=== PATIENT | female | born 1995 | race African-American/Black ===

== ENCOUNTER 2018-11-13 14:16 | Emergency (ER) | payer BC, OTHER ==
[2018-11-13 15:15] LABS: Urine Blood 1+ (NEG); Urine Glucose NEGATIVE (NEG); Urine Protein 2+ (NEG); Urine pH 8.5 (5.0-7.0)
[2018-11-13] MEDS ORDERED: IBUPROFEN 200 MG TAB PO ONE (16:15)
[2018-11-13] MEDS ORDERED: NA CHLORIDE 0.9% 1,000 ML ONE (16:29)
[2018-11-13 16:58] LABS: ALT/SGPT 25 U/L (12-78); AST/SGOT 16 U/L (15-37); Albumin 3.9 g/dL (3.4-5.0); Alkaline Phosphatase 65 U/L (45-117); BUN Blood Urea Nitrogen 7 mg/dL (7-18); Bicarbonate 26 mmol/L (21-32); Bilirubin Direct < 0.1 mg/dL (0-0.2); Bilirubin Total 0.3 mg/dL (0.2-1.0); Glucose Level 103 mg/dL (74-106); Lipase 79 U/L (73-393); Potassium 3.7 mmol/L (3.5-5.1); Sodium Level 137 mmol/L (136-145)
[2018-11-13 17:08] LABS: Absolute Lymphocytes (CBC) 0.8 K/uL (0.7-4.9); Absolute Monocytes 0.8 K/uL (0.1-1.3); Absolute Neutrophil 6.8 K/uL (1.8-8.0); Basophils % 0.6 % (0-1.3); Hematocrit 42.1 % (36.0-45.0); Lymphocytes % 9.2 % (15.3-44.8); MPV 8.7 fL (7.6-11.3); Monocytes % 9.4 % (3.3-12.3); RBC Red Blood Cell Count 5.05 M/uL (3.86-4.86)
--- NOTE | 2018-11-13 17:42 | RAD REPORT ---
EXAM DESCRIPTION: CT - Abdomen Pelvis W Contrast - 11/13/2018 5:25 pm CLINICAL HISTORY: Abdominal pain/flank pain. COMPARISON: 2013 TECHNIQUE: Computed axial tomography of the abdomen pelvis was obtained. 100 cc Isovue-300 was admin istered intravenously. Oral contrast was not requested which limits evaluation of bowel. All CT scans are performed using dose optimization technique as appropriate and may include automated exposure control or mA/KV adjustment according to patient size. FINDINGS: The liver, spleen, pancreas, adrenal and kidneys appear unremarkable. There is no evidence of diverticulitis. The appendix is normal 2 centimeter right ovarian cyst without significant free fluid IMPRESSION: 2 centimeter right ovarian cyst without significant free fluid
[2018-11-13] MEDS ORDERED: ACETAMINOPHEN 325 MG TABLET ONE (18:00)
--- NOTE | 2018-11-13 18:03 | ER ---
Nurse's Notes [facility] Name: Darren Blakely Age: 23 yrs Sex: Female : 1995 Arrival Date: 11/13/2018 Time: 14:18 Bed 27 Private MD: Diagnosis: Diarrhea, unspecified;Acute pharyngitis;Urinary tract infection, site not specified Presentation: 11/13 14:35 Presenting complaint: Patient states: body aches, sore throat, urinary frequency/ ss urgency, diarrhea, fever and headache that began 2-3 days ago. Transition of care: patient was not received from another setting of care. Risk Assessment: Do you want to hurt yourself or someone else? Patient reports no desire to harm self or others. Initial Sepsis Screen: Does the patient meet any 2 criteria? HR > 90 bpm. Does the patient have a suspected source of infection? No. Patient's initial sepsis screen is negative. Care prior to arrival: None. 14:35 Method Of Arrival: Ambulatory ss 14:35 Acuity: PATT 4 ss 14:40 Onset of symptoms was November 13, 2018. 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 - Social history:: Smoking status: Patient uses tobacco products, denies chronic smoking, but will smoke occasionally. - Ebola Screening: : Patient denies exposure to infectious person Patient denies travel to an Ebola-affected area in the 21 days before illness onset. Screenin:40 Abuse screen: Denies threats or abuse. Denies injuries from another. Nutritional ca1 screening: No deficits noted. Tuberculosis screening: No symptoms or risk factors identified. Fall Risk None identified. Assessment: 14:40 General: Appears in no apparent distress. comfortable, Behavior is calm, cooperative, ca1 appropriate for age. Pain: Complains of pain in low back area Pain currently is 6 out of 10 on a pain scale. Quality of pain is described as aching. Neuro: Level of Consciousness is awake, alert, obeys commands, Oriented to person, place, time, situation. Cardiovascular: Heart tones S1 S2 present Capillary refill < 3 seconds Patient's skin is warm and dry. Respiratory: Airway is patent Trachea midline Respiratory effort is even, unlabored, Respiratory pattern is regular, symmetrical, Breath sounds are clear bilaterally. GI: Abdomen is round non-distended, Bowel sounds present X 4 quads. Abd is soft Abdomen is tender to palpation. : Reports burning with urination, urgency, urinary frequency. EENT: Throat is reddened has enlarged tonsils bilaterally. Derm: Skin is intact, is healthy with good turgor, Skin is pink, warm \T\ dry. Musculoskeletal: Circulation, motion, and sensation intact. 15:36 Reassessment: Patient appears in no apparent distress at this time. Patient and/or ca1 family updated on plan of care and expected duration. Pain level reassessed. Patient is alert, oriented x 3, equal unlabored respirations, skin warm/dry/pink. 16:40 Reassessment: Patient appears in no apparent distress at this time. Patient and/or ca1 family updated on plan of care and expected duration. Pain level reassessed. Patient is alert, oriented x 3, equal unlabored respirations, skin warm/dry/pink. 17:40 Reassessment: Patient appears in no apparent distress at this time. Patient and/or ca1 family updated on plan of care and expected duration. Pain level reassessed. Patient is alert, oriented x 3, equal unlabored respirations, skin warm/dry/pink. Vital Signs: 14:37 BP 137 / 91; Pulse 108; Resp 19; Pulse Ox 97% on R/A; ca1 14:37 Temp 99.8(TE); Weight 97.52 kg; Height 5 ft. 6 in. (167.64 cm); Pain 7/10; ss 15:36 BP 135 / 85; Pulse 112; Resp 19; Pulse Ox 100% on R/A; ca1 15:58 Temp 101.3(O); ca1 16:30 BP 125 / 67; Pulse 110; Resp 19; Pulse Ox 100% on R/A; ca1 17:36 BP 111 / 89; Pulse 109; Resp 19; Pulse Ox 100% on R/A; ca1 17:58 Temp 99.3(O); ca1 14:37 Body Mass Index 34.70 (97.52 kg, 167.64 cm) ED Course: 14:18 Patient arrived in ED. rg4 14:32 Mickail, Nestor, PA is PHCP. jmm 14:32 Jaspal Etienne MD is Attending Physician. jmm 14:36 Triage completed. ss 14:37 Loren Fuentes, BERNICE is Primary Nurse. ca1 14:37 Arm band placed on right wrist. ss 14:40 Patient has correct armband on for positive identification. Placed in gown. Bed in low ca1 position. Call light in reach. Side rails up X 1. Pulse ox on. NIBP on. Warm blanket given. 16:07 Radiology exam delayed due to lab results not completed at this time. (BUN/Creatinine). jg6 16:30 Inserted saline lock: 20 gauge in right antecubital area, using aseptic technique. ca1 Blood collected. 16:44 Radiology exam delayed due to lab results not completed at this time. (BUN/Creatinine). jg6 17:14 Patient moved to RI via wheelchair. jg6 17:24 CT completed. Patient tolerated procedure well. Patient moved back from RI. nj 17:26 CT Abd/Pelvis - W/Contrast In Process Unspecified. EDMS 18:09 No provider procedures requiring assistance completed. ca1 18:15 IV discontinued, intact, bleeding controlled, No redness/swelling at site. Pressure ca1 dressing applied. Administered Medications: 16:05 Drug: Motrin 600 mg Route: PO; ca1 17:55 Follow up: Response: No adverse reaction; Temperature is unchanged ca1 17:56 Follow up: Response: Temperature is decreased ca1 16:32 Drug: NS 0.9% 1000 ml Route: IV; Rate: 1 bolus; Site: right antecubital; ca1 18:16 Follow up: Response: No adverse reaction; IV Status: Completed infusion ca1 17:52 Drug: Tylenol 650 mg Route: PO; ls4 18:05 Follow up: Response: No adverse reaction; Pain is decreased ca1 18:05 Drug: Rocephin - (cefTRIAXone) 1 grams Route: IVPB; Infused Over: 30 mins; Site: right ca1 antecubital; 18:15 Follow up: Response: No adverse reaction; IVP per pharmacy protocol. ca1 18:45 Follow up: Response: No adverse reaction; IV Status: IVP per pharmacy protocol ca1 Intake: Outcome: 18:02 Discharge ordered by . m 18:14 Discharged to home ambulatory. ca1 18:14 Condition: stable 18:14 Discharge instructions given to patient, Instructed on discharge instructions, follow up and referral plans. medication usage, Demonstrated understanding of instructions, follow-up care, medications, Prescriptions given X 2. 18:18 Patient left the ED. ca1 Signatures: Dispatcher [employer] EDMS Nestor Adams PA PA jmm Smirch, Shelby, BERNICE RN Chastity Castillo rg4 Roni Bailey Jessica j6 Tayla Shirley RN RN ls4 Loren Fuentes RN RN ca1 Corrections: (The following items were deleted from the chart) 15:03 14:40 EENT: No signs and/or symptoms were reported regarding the EENT system. ca1 ca1 18:01 15:58 Temp 101.3F; ca1 ca1
--- NOTE | 2018-11-13 18:03 | EDPHYS ---
Physician Documentation [facility] Name: Darren Blakely Age: 23 yrs Sex: Female : 1995 Arrival Date: 11/13/2018 Time: 14:18 Bed 27 Private MD: ED Physician Jaspal Etienne HPI: 11/13 15:05 This 23 yrs old Black Female presents to ER via Ambulatory with complaints of Flu jmm Symptoms. 15:05 fever, flank pain. Onset: The symptoms/episode began/occurred gradually, last night. jmm The patient has not experienced similar symptoms in the past. This is a 23 year old female with no chronic medical conditions that presents to the ED with complaints of fever, sore throat, diarrhea, flank pain, and dysuria. Patient denies cough. . 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 - Social history:: Smoking status: Patient uses tobacco products, denies chronic smoking, but will smoke occasionally. - Ebola Screening: : Patient denies exposure to infectious person Patient denies travel to an Ebola-affected area in the 21 days before illness onset. ROS: 15:05 Constitutional: Positive for fever. jmm 15:05 ENT: Positive for sore throat. 15:05 Abdomen/GI: Positive for diarrhea. 15:05 Back: Positive for flank pain, Negative for 15:05 : Positive for urinary symptoms. 15:05 All other systems are negative. Exam: 15:05 Constitutional: This is a well developed, well nourished patient who is awake, alert, jmm and in no acute distress. Head/Face: atraumatic. Eyes: EOMI, no conjunctival erythema appreciated 15:05 Neck: Trachea midline, Supple Chest/axilla: Normal chest wall appearance and motion. 15:05 ENT: Posterior pharynx: erythema, that is moderate. 15:05 Cardiovascular: Rate: tachycardic, Rhythm: regular. 15:05 Respiratory: the patient does not display signs of respiratory distress, Respirations: normal, Breath sounds: are clear throughout. 15:05 Abdomen/GI: Inspection: abdomen appears normal, Bowel sounds: normal. 15:05 Back: CVA tenderness, that is mild, is noted bilaterally. 15:05 Musculoskeletal/extremity: ROM: intact in all extremities. 15:05 Skin: Appearance: Color: normal in color. 15:05 Neuro: Orientation: is normal, Mentation: is normal, Memory: is normal, Gait: is steady. 15:05 Psych: Behavior/mood is pleasant, cooperative. Vital Signs: 14:37 BP 137 / 91; Pulse 108; Resp 19; Pulse Ox 97% on R/A; ca1 14:37 Temp 99.8(TE); Weight 97.52 kg; Height 5 ft. 6 in. (167.64 cm); Pain 7/10; ss 15:36 BP 135 / 85; Pulse 112; Resp 19; Pulse Ox 100% on R/A; ca1 15:58 Temp 101.3(O); ca1 16:30 BP 125 / 67; Pulse 110; Resp 19; Pulse Ox 100% on R/A; ca1 17:36 BP 111 / 89; Pulse 109; Resp 19; Pulse Ox 100% on R/A; ca1 17:58 Temp 99.3(O); ca1 14:37 Body Mass Index 34.70 (97.52 kg, 167.64 cm) MDM: 15:[address] [facility] 17:56 Data reviewed: vital signs, nurses notes. Counseling: I had a detailed discussion with [facility] the patient and/or guardian regarding: the historical points, exam findings, and any diagnostic results supporting the discharge/admit diagnosis. 18:00 Data reviewed: lab test result(s), radiologic studies, CT scan. Counseling: I had a [facility] detailed discussion with the patient and/or guardian regarding: lab results, radiology results, the need for outpatient follow up, to return to the emergency department if symptoms worsen or persist or if there are any questions or concerns that arise at home. ED course: Patient is alert and non toxic in appearance in the ED. UTI will be treated. Other symptoms appear viral. Patient is given strict return precautions. Patient is able to tolerate PO. . 11/13 14:38 Order name: Flu; Complete Time: 15:46 ss 11/13 14:38 Order name: Strep; Complete Time: 15:46 ss 11/13 15:01 Order name: Urine Dipstick--Ancillary (enter results); Complete Time: 15:24 11/13 15:01 Order name: Urine --Ancillary (enter results); Complete Time: 15:24 11/13 15:46 Order name: Throat Culture [facility] 11/13 16:05 Order name: Basic Metabolic Panel; Complete Time: 17:04 [facility] 11/13 16:05 Order name: CBC with Diff; Complete Time: 17:39 [facility] 11/13 16:05 Order name: Creatinine for Radiology; Complete Time: 17:04 [facility] 11/13 16:05 Order name: Hepatic Function; Complete Time: 17:04 [facility] 11/13 16:05 Order name: Lipase; Complete Time: 17:04 [facility] 11/13 16:05 Order name: CT Abd/Pelvis - W/Contrast; Complete Time: 17:49 [facility] 11/13 16:05 Order name: IV Saline Lock; Complete Time: 16:33 [facility] 11/13 16:05 Order name: Labs collected and sent; Complete Time: 16:33 [facility] Administered Medications: 16:05 Drug: Motrin 600 mg Route: PO; ca1 17:55 Follow up: Response: No adverse reaction; Temperature is unchanged ca1 17:56 Follow up: Response: Temperature is decreased ca1 16:32 Drug: NS 0.9% 1000 ml Route: IV; Rate: 1 bolus; Site: right antecubital; ca1 18:16 Follow up: Response: No adverse reaction; IV Status: Completed infusion ca1 17:52 Drug: Tylenol 650 mg Route: PO; ls4 18:05 Follow up: Response: No adverse reaction; Pain is decreased ca1 18:05 Drug: Rocephin - (cefTRIAXone) 1 grams Route: IVPB; Infused Over: 30 mins; Site: right ca1 antecubital; 18:15 Follow up: Response: No adverse reaction; IVP per pharmacy protocol. ca1 18:45 Follow up: Response: No adverse reaction; IV Status: IVP per pharmacy protocol ca1 Disposition: 11/13/18 18:02 Discharged to Home. Impression: Diarrhea, unspecified, Acute pharyngitis, Urinary tract infection, site not specified. - Condition is Stable. - Discharge Instructions: Food Choices to Help Relieve Diarrhea, Adult, Diarrhea, Adult, Pharyngitis, Urinary Tract Infection, Adult. - Prescriptions for Zofran ODT 4 mg Oral tablet,disintegrating - place 1 tablet by TRANSLINGUAL route every 4-6 hours; 20 tablet. cefdinir 300 mg Oral capsule - take 1 capsule by ORAL route every 12 hours; 20 capsule. - Medication Reconciliation Form, Thank You Letter, Antibiotic Education, Prescription Opioid Use form. - Follow up: Private Physician; When: 2 - 3 days; Reason: Recheck today's complaints, Continuance of care, Re-evaluation by your physician. Addendum: 11/15/2018 21:03 Co-signature as Attending Physician, Jaspal Etienne MD. g s Signatures: Dispatcher [employer] EDMS Nestor Adams PA PA jmm Smirch, Shelby, RN RN ss Jaspal Etienne MD MD gs Stewart, Lisa, RN RN ls4 Loren Fuentes RN RN ca1 Corrections: (The following items were deleted from the chart) 11/13 18:18 18:02 11/13/2018 18:02 Discharged to Home. Impression: Diarrhea, unspecified; Acute ca1 pharyngitis; Urinary tract infection, site not specified. Condition is Stable. Forms are Medication Reconciliation Form, Thank You Letter, Antibiotic Education, Prescription Opioid Use. Follow up: Private Physician; When: 2 - 3 days; Reason: Recheck today's complaints, Continuance of care, Re-evaluation by your physician. darryl
[2018-11-13] MEDS ORDERED: CEFTRIAXONE/SWI 1gm 1 GM/10 ML SYR ONE (18:14)
== END 2018-11-13 18:18 | disposition home or self-care (01) ==
LOC: ER 14:16
DX: R50.9 Fever, unspecified (principal); J02.9 Acute pharyngitis, unspecified; N39.0 Urinary tract infection, site not specified; R19.7 Diarrhea, unspecified
CPT/HCPCS: 36415; 74177; 80048; 80076; 81003; 81025; 83690; 85025; 87070; 87081; 87804; 96361; 96365; 99284; J0696; J7030; Q9967

== ENCOUNTER 2024-06-29 05:15 | Observation (INO) | payer BC, OTHER ==
--- OUTSIDE RECORDS SUMMARY | 2024-06-29 05:17 | XMS REPORT | Continuity of Care Document ---
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
[2024-06-29] MEDS ORDERED: NA CHLORIDE 0.9% 1,000 ML ONE (05:34)
[2024-06-29] MEDS ORDERED: ONDANSETRON 4 MG/2 ML VIAL ONE ×2 (05:34→17:52)
[2024-06-29 05:42] LABS: Absolute Basophils 0.1 K/uL (0-0.5); Absolute Lymphocytes (CBC) 1.2 K/uL (0.7-4.9); Absolute Monocytes 0.4 K/uL (0.1-1.3); Absolute Neutrophil 5.6 K/uL (1.8-8.0); Eosinophils % 0.3 % (0-4.4); Hematocrit 38.9 % (36.0-45.0); Hemoglobin 12.9 g/dL (12.0-15.0); Lymphocytes % 16.7 % (15.3-44.8); MCH 27.9 pg (27.0-35.0); MCHC 33.2 g/dL (32.0-36.0); MCV 83.9 fL (80-100); MPV 7.7 fL (7.6-11.3); Monocytes % 5.6 % (3.3-12.3); Neutrophils % 76.4 % (41.7-73.7); Nucleated Red Blood Cells % 0.2 % (0-0); Platelets 242 thou/uL (152-406); RBC Red Blood Cell Count 4.63 M/uL (3.86-4.86); Red Cell Distribution Width 13.3 % (12.1-15.2)
[2024-06-29 05:54] LABS: Albumin 3.9 g/dL (3.4-5.0); Albumin/Globulin Ratio 1.1 (1.1-1.8); Anion Gap 6.8 mEq/L (5.0-15.0); Bilirubin Total 0.3 mg/dL (0.2-1.0); Globulin 3.7 g/dL (2.3-3.5); Potassium 3.8 mEq/L (3.5-5.1); Protein, Total 7.6 g/dL (6.4-8.2)
[2024-06-29] MEDS ORDERED: KETOROLAC 30 MG/ML INJ ONE ×2 (05:56→17:52)
[2024-06-29] MEDS ORDERED: FAMOTIDINE 20 MG/2 ML VIAL IV ONE (05:56)
[2024-06-29] MEDS ORDERED: METOCLOPRAMIDE 10 MG/2mL INJ ONE (05:56)
[2024-06-29 08:10] LABS: Specific Gravity 1.027 (1.005-1.030)
[2024-06-29 08:11] LABS: Specific Gravity 1.027 (1.005-1.030); Urine Bacteria None Seen /HPF (<20); Urine Bilirubin NEGATIVE (Negative); Urine Blood 1+ (Negative); Urine Clarity Extremely Turbid (Clear); Urine Color Light-Yellow (Yellow); Urine Culture Reflex Order NOT NEEDED; Urine Glucose NEGATIVE (Negative); Urine Ketones NEGATIVE (Negative); Urine Microscopic Reflex YN ORDER UMIC; Urine Mucus 1+ /HPF (None Seen); Urine Nitrite NEGATIVE (Negative); Urine Protein TRACE (Negative); Urine Urobilinogen Normal (Normal); Urine WBC <5 /HPF (<5); Urine pH 6.5 (5.0-7.0)
--- NOTE | 2024-06-29 08:53 | RAD REPORT ---
EXAMINATION: CT ABDOMEN AND PELVIS WITH CONTRAST CLINICAL INDICATION: Female, 28 years old.ABD PAIN TECHNIQUE: CT abdomen and pelvis was performed, after the administration of IV contrast, as per depar tment protocol. Axial, sagittal and coronal reconstructions were obtained. One or more of the following dose reduction techniques were used: Automated exposure control, adjustment of the mA and/o r kV according to patient size, and/or iterative reconstruction. Unless otherwise specified, incidental findings do not require dedicated imaging follow-up. [id number]. COMPARISON: 11/13/2018 FINDINGS: LOWER CHEST: The visualized lung bases are clear. LIVER: Normal in size and contour. No focal lesion. GALLBLADDER/BILE DUCT: Gallbladder wall thickening and pericholecystic fluid.? PANCREAS: No mass, ductal dilation, or jovita-pancreatic fluid. SPLEEN: Normal size. No focal lesion. ADRENALS: Normal; no mass. KIDNEYS AND URETERS: Normal size and contour. No hydronephrosis. URINARY BLADDER: Normal contour. GASTROINTESTINAL TRACT: Stomach is non-dilated. Small bowel has normal course and caliber. No colonic wall thickening or pericolonic inflammatory changes. Normal appendix. PERITONEUM: No ascites. LYMPH NODES: No lymphadenopathy. ABDOMINAL AORTA AND OTHER VESSELS: Normal caliber aorta and IVC. REPRODUCTIVE ORGANS: No pathologic process MUSCULOSKELETAL: No acute or suspicious osseous abnormality. ADDITIONAL FINDINGS: None. IMPRESSION: Gallbladder wall thickening and pericholecystic fluid could reflect acute cholecystitis. The appendix is normal.
--- NOTE | 2024-06-29 09:33 | RAD REPORT ---
Abdomen Exam Limited: 06/29/2024 9:26 AM CLINICAL HISTORY: ruq STUDY: Limited right upper quadrant ultrasound of abdomen. COMPARISON: Same day CT FINDINGS: Liver: No significant abnormality. Bile ducts: No intrahepatic or extrahepatic biliary dilatation. Common bile duct measures 5 mm. Gallbladder: The gallbladder wall is thickened. Stones are present and sludge. A sonographic Vasquez s ign was not reported. IMPRESSION: Cholelithiasis with gallbladder wall thickening and pericholecystic fluid is concerning for acute cho lecystitis.
[2024-06-29] MEDS ORDERED: PIPERACIL/TAZO 3.375 GM VIAL IV ONE (09:51)
[2024-06-29] MEDS ORDERED: NA CHLORIDE 0.9% 100 ML ONE (09:51)
--- NOTE | 2024-06-29 10:37 | ER ---
Nurse's Notes [facility] Name: Darren Blakely Age: 28 yrs Sex: Female : 1995 Arrival Date: 06/29/2024 Time: 05:15 Bed 20 Private MD: Diagnosis: Acute cholecystitis Presentation: 06/29 05:19 Chief complaint: Patient states: NAUSEA, VOMITING, AND ABDOMINAL PAIN. 1 05:19 Method Of Arrival: Ambulatory ha1 05:19 Coronavirus screen: Vaccine status: Patient reports being unvaccinated. Ebola Screen: ha1 No symptoms or risks identified at this time. Initial Sepsis Screen: Does the patient meet any 2 criteria? No. Patient's initial sepsis screen is negative. Does the patient have a suspected source of infection? No. Patient's initial sepsis screen is negative. Risk Assessment: Do you want to hurt yourself or someone else? Patient reports no desire to harm self or others. Onset of symptoms was June 29, 2024. 05:19 Acuity: PATT 3 ha1 Triage Assessment: 05:19 General: Appears uncomfortable, Behavior is cooperative. Pain: Complains of pain in ha1 abdomen Pain does not radiate. Pain currently is 7 out of 10 on a pain scale. Pain: Pain began suddenly, 2 hours ago. Neuro: Level of Consciousness is awake, alert, obeys commands, Oriented to person, place, time, situation. Cardiovascular: Capillary refill < 3 seconds Patient's skin is warm and dry. Respiratory: Airway is patent Respiratory effort is even, unlabored, Respiratory pattern is regular, symmetrical. GI: Abdomen is round obese, Reports lower abdominal pain, upper abdominal pain, nausea, vomiting. Musculoskeletal: Circulation, motion, and sensation intact. Range of motion: intact in all extremities. 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 - Infectious Disease History:: Denies. - Social history:: Smoking status: Patient denies any tobacco usage or history of. - Family history:: not pertinent. Screenin:19 [facility] ED Fall Risk Assessment (Adult) History of falling in the last 3 months, ha1 including since admission No falls in past 3 months (0 pts) Confusion or Disorientation No (0 pts) Intoxicated or Sedated No (0 pts) Impaired Gait No (0 pts) Mobility Assist Device Used No (0 pt) Altered Elimination No (0 pt) Score/Fall Risk Level 0 - 2 = Low Risk Oriented to surroundings, Maintained a safe environment, Educated pt \T\ family on fall prevention, incl call for assistance when getting out of bed, Hourly rounding (assess needs \T\ fall precautionary measures) done. Abuse screen: Denies threats or abuse. Denies injuries from another. Nutritional screening: No deficits noted. Tuberculosis screening: No symptoms or risk factors identified. Assessment: 06:17 General: Appears in no apparent distress. Behavior is calm, cooperative, appropriate dd2 for age. Pain: Complains of pain in umbilical area, right lower quadrant and left lower quadrant Pain currently is 7 out of 10 on a pain scale. Neuro: Level of Consciousness is awake, alert, obeys commands, Oriented to person, place, time, situation, Appropriate for age. Cardiovascular: No deficits noted. Patient's skin is warm and dry. Respiratory: Airway is patent Respiratory effort is even, unlabored, Respiratory pattern is regular, symmetrical. GI: Abdomen is round non-distended, Bowel sounds present X 4 quads. Abdomen is tender to palpation in umbilical area, right lower quadrant and left lower quadrant Reports lower abdominal pain, nausea, vomiting. : No deficits noted. No signs and/or symptoms were reported regarding the genitourinary system. EENT: No deficits noted. No signs and/or symptoms were reported regarding the EENT system. Derm: No deficits noted. Skin is healthy with good turgor. Musculoskeletal: No deficits noted. Circulation, motion, and sensation intact. Range of motion: intact in all extremities. 07:15 Reassessment: Patient appears in no apparent distress at this time. Patient and/or db family updated on plan of care and expected duration. Pain level reassessed. Patient is alert, oriented x 3, equal unlabored respirations, skin warm/dry/pink. General: Appears in no apparent distress. comfortable, Behavior is calm, cooperative. 07:15 Reassessment: Patient appears in no apparent distress at this time. Patient and/or db family updated on plan of care and expected duration. Pain level reassessed. Patient is alert, oriented x 3, equal unlabored respirations, skin warm/dry/pink. SLEEPING. Respiratory: Airway is patent Respiratory effort is even, unlabored, Respiratory pattern is regular, symmetrical. 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 db 11:36 Reassessment: Patient appears in no apparent distress at this time. Patient and/or db family updated on plan of care and expected duration. Pain level reassessed. Patient is alert, oriented x 3, equal unlabored respirations, skin warm/dry/pink. 12:13 Reassessment: Patient appears in no apparent distress at this time. Patient and/or db family updated on plan of care and expected duration. Pain level reassessed. Patient is alert, oriented x 3, equal unlabored respirations, skin warm/dry/pink. Vital Signs: 05:19 BP 130 / 82; Pulse 70; Resp 16 S; Pulse Ox 100% on R/A; Weight 97.52 kg; Height 5 ft. 6 ha1 in. ; 06:21 BP 132 / 87; Pulse 78; Resp 15; Pulse Ox 99% ; dd2 06:45 BP 112 / 65; Pulse 79; Resp 18; Pulse Ox 100% on R/A; db 07:49 BP 109 / 72; Pulse 82; Resp 16; Pulse Ox 100% on R/A; db 08:15 BP 103 / 69; Pulse 77; Resp 16; Pulse Ox 98% on R/A; db 09:15 BP 111 / 78; Pulse 70; Resp 18; Pulse Ox 99% on R/A; db 10:30 BP 119 / 77; Pulse 80; Resp 16; Pulse Ox 96% ; db 11:00 BP 118 / 80; Pulse 72; Resp 16; Pulse Ox 99% ; db 11:45 BP 102 / 91; Pulse 71; Resp 18; Pulse Ox 95% ; db 05:19 Body Mass Index 34.70 (97.52 kg, 167.64 cm) ha1 Lawrence Coma Score: 06:14 Eye Response: spontaneous(4). Motor Response: obeys commands(6). Verbal Response: sp4 oriented(5). Total: 15. ED Course: 05:17 Patient arrived in ED. [id number] 05:17 Alexander Cherry MD is Attending Physician. sp4 05:19 Patient has correct armband on for positive identification. Bed in low position. Call ha1 light in reach. Side rails up X 1. 05:21 ERIN PUGH, RN is Primary Nurse. dd2 05:32 CBC with Diff Sent. dd2 05:32 CMP Sent. dd2 05:32 Lipase Sent. dd2 05:32 Initial lab(s) drawn, by me, sent to lab. Inserted saline lock: 20 gauge in right dd2 antecubital area, using aseptic technique. Blood collected. Flushed with 10 mL NS. 05:33 Triage completed. ha1 06:17 No provider procedures requiring assistance completed. dd2 06:17 Provided Education on: MEDICATIONS, CALL LIGHT, LABS, RESULT TIES. Client placed on dd2 continuous cardiac and pulse oximetry monitoring. NIBP monitoring applied. Door closed. Noise minimized. Warm blanket given. Verbal reassurance given. 06:58 Attending Physician role handed off by Alexander Cherry MD rt 06:58 Gomez Quintanilla MD is Attending Physician. rt 07:14 Radiology exam delayed due to test not completed at this time. [email or web address] 07:41 Primary Nurse role handed off by ERIN PUGH, BERNICE eb 07:49 Patricia Saucedo, RN is Primary Nurse. db 07:56 Urine collected: clean catch specimen, clear. db 08:[address] db 08:46 CT Abd/Pelvis - IV Contrast Only In Process Unspecified. EDMS 08:[address] db 09:28 US Abdomen Limited In Process Unspecified. EDMS 10:37 Bharat Romero MD is Hospitalizing Provider. rt 12:12 Patient admitted, IV remains in place. db Administered Medications: 05:38 Drug: NS 0.9% IV 1000 ml IV at 1 bolus Per protocol; 1000 mL bolus Route: IV; Rate: 1 dd2 bolus; Site: right antecubital; 05:53 Follow up: Response: No adverse reaction dd2 10:35 Follow up: Response: No adverse reaction; IV Status: Completed infusion; IV Intake: db 1000ml 05:38 Drug: Ondansetron IVP 4 mg IVP once; over 2 minutes Route: IVP; Site: right antecubital;dd2 05:53 Follow up: Response: No adverse reaction dd2 06:01 Drug: metoCLOPramide IVP 10 mg IVP once; over 1 to 2 minutes Route: IVP; Site: right dd2 antecubital; 06:16 Follow up: Response: No adverse reaction dd2 06:01 Drug: Ketorolac IVP 30 mg IVP once Route: IVP; Site: right antecubital; dd2 06:16 Follow up: Response: No adverse reaction dd2 06:01 Drug: Famotidine IVP 20 mg IVP once; dilute with 10 mL 0.9% NaCl; give over 2 minutes dd2 Route: IVP; Site: right antecubital; 06:16 Follow up: Response: No adverse reaction dd2 10:02 Drug: Piperacillin-Tazobactam IVPB 3.375 grams IVPB once over 60 mins; (mix in NS 100 db mL) Route: IVPB; Infused Over: 60 mins; Site: right antecubital; 10:32 Follow up: Response: No adverse reaction; IV Status: Completed infusion; IV Intake: db 100ml Medication: 05:36 VIS not applicable for this client. ha1 Intake: 10:32 IV: 100ml; Total: 100ml. db 10:35 IV: 1000ml; Total: 1100ml. db Outcome: 10:37 Decision to Hospitalize by Provider. rt 12:12 Admitted to Med/surg accompanied by tech, via wheelchair, room 207, Report called to db FAXED TO UNIT 12:12 Condition: stable 12:12 Instructed on the need for transfer, 12:15 Patient left the ED. db Signatures: Dispatcher [employer] EDRI Nicolasa Sanon Michelle [email or web address] Kelly Montoya [email or web address] Jaclyn Watts RN RN ha1 Patricia Saucedo RN RN db Gomez Quintanilla MD MD rt Alexander Cherry MD MD sp4 ERIN PUGH RN RN dd2 Corrections: (The following items were deleted from the chart) 12:14 12:13 BP 102 / 91; Pulse 71bpm; Resp 18bpm; Pulse Ox 95%; db db
--- NOTE | 2024-06-29 10:37 | EDPHYS ---
Physician Documentation [facility] Name: Darren Blakely Age: 28 yrs Sex: Female : 1995 Arrival Date: 06/29/2024 Time: 05:15 Bed 20 Private MD: ED Physician Gomez Quintanilla HPI: 06/29 05:17 This 28 yrs old Black Female presents to ER via Unassigned with complaints of Abdominal sp4 Pain, Nausea. 06:14 28-year-old female who takes semaglutide presents with acute onset of lower abdominal sp4 pain associate with vomiting starting 2 AM . 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 - Infectious Disease History:: Denies. - Social history:: Smoking status: Patient denies any tobacco usage or history of. - Family history:: not pertinent. ROS: 06:14 Constitutional: Negative for fever, chills, and weight loss, positive lower abdominal sp4 pain, positive nausea vomiting 06:14 All other systems are negative, Exam: 06:14 Constitutional: This is a well developed, well nourished patient who is awake, alert, sp4 and in no acute distress. Head/Face: Normocephalic, atraumatic. Eyes: Pupils equal round and reactive to light, extra-ocular motions intact. Lids and lashes normal. Conjunctiva and sclera are not injected. Cornea within normal limits. Periorbital areas with no swelling, redness, or edema. ENT: Nares patent. No nasal discharge, no septal abnormalities noted. Tympanic membranes are normal and external auditory canals are clear. Oropharynx with no redness, swelling, or masses, exudates, or evidence of obstruction, uvula midline. Mucous membranes moist. Neck: Trachea midline, no thyromegaly or masses palpated, and no cervical lymphadenopathy. Supple, full range of motion without nuchal rigidity, or vertebral point tenderness. Chest/axilla: Normal chest wall appearance and motion. Nontender with no deformity. No lesions are appreciated. Cardiovascular: Regular rate and rhythm with a normal S1 and S2. No gallops, murmurs, or rubs. Normal PMI, no JVD. No pulse deficits. Respiratory: Lungs have equal breath sounds bilaterally, clear to auscultation and percussion. No rales, rhonchi or wheezes noted. No increased work of breathing, no retractions or nasal flaring. Abdomen/GI: Soft, with normal bowel sounds. No distension or tympany. No guarding or rebound. No evidence of tenderness throughout. Back: No spinal tenderness. No costovertebral tenderness. Skin: Warm, dry with normal turgor. Normal color with no rashes, no lesions, and no evidence of cellulitis. MS/ Extremity: Pulses equal, no cyanosis. Neurovascular intact. Full, normal range of motion. Neuro: Awake and alert, GCS 15, oriented to person, place, time, and situation. Cranial nerves II-XII grossly intact. Motor strength 5/5 in all extremities. Sensory grossly intact. Psych: Awake, alert, with orientation to person, place and time. Behavior, mood, and affect are within normal limits Vital Signs: 05:19 BP 130 / 82; Pulse 70; Resp 16 S; Pulse Ox 100% on R/A; Weight 97.52 kg; Height 5 ft. 6 ha1 in. ; 06:21 BP 132 / 87; Pulse 78; Resp 15; Pulse Ox 99% ; dd2 06:45 BP 112 / 65; Pulse 79; Resp 18; Pulse Ox 100% on R/A; db 07:49 BP 109 / 72; Pulse 82; Resp 16; Pulse Ox 100% on R/A; db 08:15 BP 103 / 69; Pulse 77; Resp 16; Pulse Ox 98% on R/A; db 09:15 BP 111 / 78; Pulse 70; Resp 18; Pulse Ox 99% on R/A; db 10:30 BP 119 / 77; Pulse 80; Resp 16; Pulse Ox 96% ; db 11:00 BP 118 / 80; Pulse 72; Resp 16; Pulse Ox 99% ; db 11:45 BP 102 / 91; Pulse 71; Resp 18; Pulse Ox 95% ; db 05:19 Body Mass Index 34.70 (97.52 kg, 167.64 cm) ha1 Spencer Coma Score: 06:14 Eye Response: spontaneous(4). Motor Response: obeys commands(6). Verbal Response: sp4 oriented(5). Total: 15. MDM: 05:18 Patient medically screened. sp4 10:37 Differential Diagnosis Cholecystitis, pancreatitis. Data reviewed: vital signs, nurses rt notes, lab test result(s), radiologic studies. Consideration of Admission/Observation Patient was admitted/placed on observation. Management of patient was discussed with the following: Polysomnography Technologist: Discussed with Dr. Romero general surgery, will operate today. Independent interpretation of the following test(s) in the Emergency Department CT Scan: My interpretation is No bowel obstruction seen on my interpretation of CT scan images. Counseling: I had a detailed discussion with the patient and/or guardian regarding the historical points, exam findings, and any diagnostic results supporting the discharge/admit diagnosis, lab results, radiology results, the need for further work-up and treatment in the hospital. Response to treatment: the patient's symptoms have markedly improved after treatment. 06/29 05:18 Order name: CBC with Diff; Complete Time: 06:15 sp4 06/29 05:18 Order name: CMP; Complete Time: 06:15 sp4 06/29 05:18 Order name: Lipase; Complete Time: 06:15 sp4 06/29 05:18 Order name: Test, Urine; Complete Time: 08:13 sp4 06/29 05:18 Order name: Urinalysis w/ reflexes; Complete Time: 08:13 sp4 06/29 05:42 Order name: CT Abd/Pelvis - IV Contrast Only; Complete Time: 08:53 sp4 06/29 08:58 Order name: US Abdomen Limited; Complete Time: 09:38 rt 06/29 05:18 Order name: IV Saline Lock; Complete Time: 05:32 sp4 06/29 05:18 Order name: Labs collected and sent; Complete Time: 05:32 sp4 06/29 09:47 Order name: NPO; Complete Time: 10:03 rt Administered Medications: 05:38 Drug: NS 0.9% IV 1000 ml IV at 1 bolus Per protocol; 1000 mL bolus Route: IV; Rate: 1 dd2 bolus; Site: right antecubital; 05:53 Follow up: Response: No adverse reaction dd2 10:35 Follow up: Response: No adverse reaction; IV Status: Completed infusion; IV Intake: db 1000ml 05:38 Drug: Ondansetron IVP 4 mg IVP once; over 2 minutes Route: IVP; Site: right antecubital;dd2 05:53 Follow up: Response: No adverse reaction dd2 06:01 Drug: metoCLOPramide IVP 10 mg IVP once; over 1 to 2 minutes Route: IVP; Site: right dd2 antecubital; 06:16 Follow up: Response: No adverse reaction dd2 06:01 Drug: Ketorolac IVP 30 mg IVP once Route: IVP; Site: right antecubital; dd2 06:16 Follow up: Response: No adverse reaction dd2 06:01 Drug: Famotidine IVP 20 mg IVP once; dilute with 10 mL 0.9% NaCl; give over 2 minutes dd2 Route: IVP; Site: right antecubital; 06:16 Follow up: Response: No adverse reaction dd2 10:02 Drug: Piperacillin-Tazobactam IVPB 3.375 grams IVPB once over 60 mins; (mix in NS 100 db mL) Route: IVPB; Infused Over: 60 mins; Site: right antecubital; 10:32 Follow up: Response: No adverse reaction; IV Status: Completed infusion; IV Intake: db 100ml Disposition Summary: 06/29/24 10:37 Hospitalization Ordered Notes: Hospitalization Status: Observation rt Provider: Bharat Romero rt Condition: Stable rt Problem: new rt Symptoms: have improved rt Bed/Room Type: Standard rt Location: Telemetry/MedSurg (observation)(06/29/24 10:51) eb Room Assignment: 407(06/29/24 10:51) eb Diagnosis - Acute cholecystitis rt Forms: - Medication Reconciliation Form rt - SBAR form rt - Leadership Thank You Letter rt Signatures: Dispatcher [employer] EDMS Nicolasa Sanon Jaclyn Watts, RN RN ha1 Patricia Saucedo RN RN db Gomez Quintanilla MD MD rt Alexander Cherry MD MD sp4 ERIN PUGH RN RN dd2 Corrections: (The following items were deleted from the chart) 05:18 05:18 CBC+H.LAB.BRZ ordered. EDMS EDMS 05:18 05:18 COMPREHENSIVE METABOLIC PANEL+C.LAB.BRZ ordered. EDMS EDMS 05:18 05:18 LIPASE+C.LAB.BRZ ordered. EDMS EDMS 05:18 05:18 Test, Urine+UC.LAB.BRZ ordered. EDMS EDMS 05:18 05:18 Urinalysis+U.LAB.BRZ ordered. EDMS EDMS 10:51 10:37 Operating Room rt eb 10:51 10:37 rt eb
[2024-06-29 12:42] VITALS: BMI 34.7
[2024-06-29] MEDS ORDERED: ONDANSETRON 4 MG/2 ML VIAL IV PRN (12:42)
[2024-06-29] MEDS: Ringers Lactate 1,000 ML IV SCH ×2 (15:46→23:48)
--- NOTE | 2024-06-29 16:28 | P.HP ---
Date of Service: 06/29/24 PC: This 28-year-old female presented to the emergency room with severe right upper quadrant abdominal pain for diagnosis and treatment. HPC: Patient has had a long history of indigestion, feeling uncomfortable after she ate particularly fatty foods, in the right upper quadrant. Last night had severe pain, became unrelenting, and presented now for diagnosis and treatment. PSHx: 1 para 1 PMHx: No medical issues Social Hx: No known allergies Sys R: No cough, wheeze, shortness of breath. No chest pain or palpitations. Denies any urinary complaints O/E: Awake alert vital signs are stable appears relatively comfortable HEENT: Not jaundiced Chest: Air movement equal bilaterally Abd: Tender in the right upper quadrant [place]: Intact Data: Has has cholelithiasis seen on both CT scan and ultrasound Impression: Cholecystitis with cholelithiasis, biliary colic Plan: I will taken the operating room for laparoscopic cholecystectomy with a cholangiogram. The risks of this procedure have been discussed. The possibility of bleeding, infection, injury to bile ducts blood vessels and intestines have been described. The possible need for an open and/or further surgeries and procedures was discussed. She understands and wants us to proceed.
[2024-06-29] MEDS ORDERED: propofoL 200 MG/20 ML VIAL IV ONE (17:51)
[2024-06-29] MEDS ORDERED: MIDAZOLAM HCL 2 MG/2 ML INJ ONE (17:51)
[2024-06-29] MEDS ORDERED: ROCURONIUM 50 MG/5 ML VIAL IV ONE ×2 (17:51→18:45)
[2024-06-29] MEDS ORDERED: FENTANYL CITR 100 MCG/2 ML ONE (17:51)
[2024-06-29] MEDS ORDERED: dexAMETHasone 4 MG/ML VIAL ONE (17:52)
[2024-06-29] MEDS ORDERED: LIDOCAINE 1% MPF 5 ML VIAL ONE (17:52)
[2024-06-29] MEDS: SUGAMMADEX SODIUM 200 MG/2 ML VIAL IV ONE (18:26)
--- NOTE | 2024-06-29 19:43 | P.OP ---
Preoperative diagnosis: Acute on chronic chronic cholecystitis with cholelithiasis Postoperative diagnosis: The same Primary procedure: Laparoscopic cholecystectomy Secondary procedure: Intraoperative cholangiogram Other procedure(s): Tap block Estimated blood loss: Less than 10 cc Specimen: Gallbladder and contents Operative Technique: The patient brought the operating room and placed supine on the table. After the induction of adequate general endotracheal anesthesia, the area of the abdomen was prepped with a DuraPrep solution, she was draped in the usual aseptic manner. A subumbilical incision was made. This is brought down through the skin and subcutaneous tissue. The Visiport was then used to carefully enter the peritoneal cavity and created pneumoperitoneum to approximately 12 mmHg. With the patient placed in reverse Trendelenburg and the table tilted to the left we were now able to place a 5 mm trocar in the upper midline, and 2 other fives on the right lateral side of the abdomen. On visualization of the liver and gallbladder we could see an acutely inflamed gallbladder with a marked amount of fluid underneath the serosa of the gallbladder. There was almost a callus-like covering over this area. Gentle traction allowed us to grasp the fundus of the gallbladder. It was elevated towards the head. Another trocar was placed down by Alexandre's pouch. Applying lateral traction we were able to take down these attachments from the area and clear the gallbladder itself. It was interesting to note the amount of edema that had formed in the area. On gentle dissection we able to expose the cystic duct and artery. We could see a visible bulge at the junction of the gallbladder with the cystic duct. On clip was placed in this area. Another small cut was made into the cystic duct. At this point we encountered a marked amount of resistance. I gently opening up this myotomy we were able to express a stone from the cystic duct that had been which there. The cystic duct was now milked from the common bile duct all the way up towards the gallbladder itself. No further stones were expressed. The cholangiocatheter was now gently inserted into the cystic duct and we obtained a normal intraoperative cholangiogram. We could see good flow of contrast into the duodenum. The pressure injection allowed us to demonstrate both the left and right hepatic ducts. There was a small amount of air seen in the extrahepatic biliary tree, but no filling defects suspicious for stones were noted. At this point a clip was placed on the distal portion of the cystic duct which was now fully transected. The cystic artery was identified and 2 clips were placed on it which was then transected. The gallbladder was now dissected free from the liver bed. Just prior to our last cut the gallbladder fossa was inspected to ensure adequate hemostasis. This was ensured using electrocautery. The gallbladder was now fully detached, and placed into an Endo Catch. With the patient flat on the OR table the gallbladder was down to to the umbilical trocar site. We were able to be extracted but we did need to cut the fascia due to the size of the gallbladder and its contents. The gallbladder was now removed from the peritoneal cavity. With the pneumoperitoneum reestablished, and the 5 mm trocar in the upper port we were able to visualize the umbilical trocar defect. We were able to close it using 3 separate sutures placed using the Endo Close. A good snug closure having been obtained, the abdomen was inspected to ensure adequate hemostasis. Irrigating fluid was aspirated from the peritoneal cavity. A tap block was now performed with 0.25% Marcaine on the left and right sides. At this point the pneumoperitoneum was collapsed, the trocars removed, and christiano were applied to the skin. At the end of the procedure she was in a stable condition when sent to the recovery room. Needle sponge instrument count were correct. No drains were placed. Transferred to: Recovery Room Condition: Good
[2024-06-29 19:46] VITALS: O2SAT 100
--- NOTE | 2024-06-29 22:02 | RAD REPORT ---
EXAM: Fluoroscopy use, Cholangiogram Oper-Xray Or HISTORY: Intraoperative cholangiogram, cholecystitis COMPARISON: None FINDINGS: A total of 4 images were sent to PACS, during a fluoroscopically guided intraoperative chol angiogram. No radiologist was involved in protocoling or performance of the study, and no radiologist was present for the duration of the procedure. No interpretation of the saved images will be provided. Total fluoroscopy time: 0.2 minutes. IMPRESSION: Documentation of fluoroscopy use as above.
[2024-06-29] MEDS: HYDROCODONE/APAP 7.5/325 MG TAB PO PRN (22:25)
[2024-06-29] MEDS: CEFOXITIN SODIUM 1 GM/VIAL ONE (23:47)
[2024-06-29] MEDS: CEFOXITIN 1 GM in NA CHLORIDE 0.9% 50 ML IVPB SCH (23:59)
[2024-06-30] MEDS: MORPHINE 4 MG/ML SYR IV PRN (05:11)
[2024-06-30 12:10] VITALS: BP 132/82; TEMP 97
--- NOTE | 2024-06-30 14:41 | P.DS ---
Admission Date: 06/29/24 Discharge Date: 06/30/24 Disposition: ROUTINE DISCHARGE Discharge Condition: GOOD Reason for Admission: Acute postoperative abdominal pain Procedures: Laparoscopic cholecystectomy with cholangiogram. Tap block. Vital Signs/Physical Exam: Temp Pulse Resp BP Pulse Ox 97 F 86 22 H 132/82 96 06/30/24 12:00 06/30/24 12:00 06/30/24 12:00 06/30/24 12:00 06/30/24 12:00 Laboratory Data at Discharge: WBC 7.30 thou/uL (4.3-10.9) 06/29/24 05:30 Hgb 12.9 g/dL (12.0-15.0) 06/29/24 05:30 Hct 38.9 % (36.0-45.0) 06/29/24 05:30 Plt Count 242 thou/uL (152-406) 06/29/24 05:30 Sodium 140 mEq/L (136-145) 06/29/24 05:30 Potassium 3.8 mEq/L (3.5-5.1) 06/29/24 05:30 BUN 8 mg/dL (7-18) 06/29/24 05:30 Creatinine 0.84 mg/dL (0.55-1.02) 06/29/24 05:30 Glucose 106 mg/dL (74-106) 06/29/24 05:30 Total Bilirubin 0.3 mg/dL (0.2-1.0) 06/29/24 05:30 AST 11 U/L (15-37) L 06/29/24 05:30 ALT 16 U/L (13-56) 06/29/24 05:30 Alkaline Phosphatase 42 U/L (45-117) L 06/29/24 05:30 Lipase 43 U/L (13-75) 06/29/24 05:30 Home Medications: Tirzepatide [Zepbound] 2.5 mg IM [facility] 06/29/24 Physician Discharge Instructions: DC IV, DC home. Call my office to make an appointment. Change dressings as needed, you may shower, pat incisions dry. Pain medicine as needed. Any questions or problems, go to the emergency room, or contact me. Followup: Melody Negrete FNP [Primary Care Provider] -
== END 2024-06-30 15:51 | disposition home or self-care (01) ==
LOC: ER 05:15 → DS 10:39 → 4TH 11:13
PROVIDERS: ADMIT Surgery; ATTEND Surgery
PROC: 0FT44ZZ Resection of Gallbladder, Percutaneous Endoscopic Approach (ICD-10-PCS; principal; 2024-06-29 16:00)
DX: K80.12 Calculus of gallbladder with acute and chronic cholecystitis without obstruction (principal); R10.11 Right upper quadrant pain; G89.18 Other acute postprocedural pain
CPT/HCPCS: 96365; 96361; 85025; 81001; 36415; 81025; 83690; 80053; 74177; 74300; 76705; 96375; 99285; 47563; Q9967; J2704; J1100; J2765; J2001; J2543; J2250; J3010; J0694 ×4; J2405 ×2; J7120 ×3; J7030; 88304; G0378